=== PATIENT | female | born 2000 | race Caucasian/White ===

== ENCOUNTER 2020-09-30 01:57 | Emergency (ER) | payer BC, SELFPAY ==
--- OUTSIDE RECORDS SUMMARY | 2020-09-30 02:00 | XMS REPORT | Continuity of Care Document ---
:2000 Author Organization [facility] t Address [address] [place] [address] Care Team Providers Name Role Phone Pcp, Patient Does Not Have A Primary Care Physician +[id number] Nakia Ruiz MD Attending Clinician Ruperto Cullen MD Attending Clinician Payers Payer Name Policy Type Policy Effective Date Expiration Date Sour ce Number BCBS OF [id number] 2020 [place] [facility] [place] [facility] [place] OUT OF Branch [id number] [phone] [id number], [place] [address]MHM/POS Problems This patient has no known problems. Allergies, Adverse Reactions, Alerts Allergy Allergy Status Severity Reaction(s) Onset Inactive Treating Comm ents Source Name Type Date Date Clinician Amoxicil Propensi Active Anaphylaxis 2020-0 U nivers john ty to 4-23 ity of adverse 00:00: [place] reaction 00 Medical s Branch Sulfa Propensi Active Anaphylaxis 2020-0 Uni vers (Sulfona ty to 4-23 ity of mide adverse 00:00: [place] Antibiot reaction 00 Medica l ics) s Branch Social History Social Habit Start Date Stop Date Quantity Comments Source Exposure to Not sure University of SARS-CoV-2 [facility] (event) Branch Tobacco use and 2020-06-12 2020-06-12 Never used Universit y of exposure 00:00:00 00:00:00 [place] [facility] Alcohol intake 2020-06-12 2020-06-12 Current drinker Unive rsity of 00:00:00 00:00:00 of alcohol [facility] (finding) [place] Alcohol Comment 2020-05-30 2020-05-30 1 drink a night Univ ersity of 00:00:00 00:00:00 [facility] Sex Assigned At [birth year] Universit y of 00:00:00 00:00:00 [facility] Smoking Status Start Date Stop Date Source Never smoker [facility] Medications This patient has no known medications. Vital Signs Vital Name Observation Time Observation Value Comments Source Systolic blood 2020-06-12 19:42:00 135 mm[Hg] Univer sity of pressure [facility] Diastolic blood 2020-06-12 19:42:00 83 mm[Hg] Unive rsity of [facility] Heart rate 2020-06-12 19:42:00 107 /min [facility] Body temperature 2020-06-12 19:42:00 36.89 Zeina [facility] Respiratory rate 2020-06-12 19:42:00 18 /min [facility] Body height 2020-06-12 19:42:00 172.7 cm [facility] Body weight 2020-06-12 19:42:00 165.563 kg [facility] BMI 2020-06-12 19:42:00 55.50 kg/m2 [facility] Procedures This patient has no known procedures. Plan of Care Planned Activity Planned Date Details Comments Source Future Scheduled 2021-05-30 Well child visit [facility] Test 00:00:00 (procedure) [code = Medical Branch [id number]] Future Scheduled 2021-05-30 Well child visit [facility] Test 00:00:00 (procedure) [code = Medical Branch [id number]] Future Scheduled 2020-10-08 [facility] ([facility] Ended[facility] [code = Medic al Branch INFLUENZA VACCINE (Season Ended)] Future Scheduled 2020-10-08 INFLUENZA VACCINE Univer sity [facility] Test 00:00:00 (Season Ended) [code = Medic al Branch INFLUENZA VACCINE (Season Ended)] Future Scheduled 2018-11-08 DTaP,Tdap,and Td [facility] [place] Test 00:00:00 Vaccines (1 - Tdap) Medical Branch [code = DTaP,Tdap,and Td Vaccines (1 - Tdap)] Future Scheduled 2018-11-08 DTaP,Tdap,and Td [facility] [place] Test 00:00:00 Vaccines (1 - Tdap) Medical Branch [code = DTaP,Tdap,and Td Vaccines (1 - Tdap)] Future Scheduled 2017-11-08 Hepatitis C screening [facility] [place] Test 00:00:00 (procedure) [code = Medical Branch [id number]] Future Scheduled 2017-11-08 Hepatitis C screening [facility] [place] Test 00:00:00 (procedure) [code = Medical Branch [id number]] Future Scheduled 2015 Screening for [facility] [place] Test 00:00:00 Chlamydia trachomatis Medica l Branch (procedure) [code = [id number]] Future Scheduled 2015 SARS-CoV-2 (COVID-19) [facility] [place] Test 00:00:00 Vaccine (1) [code = Medical Branch SARS-CoV-2 (COVID-19) Vaccine (1)] Future Scheduled 2015 Screening for [facility] [place] Test 00:00:00 Chlamydia trachomatis Medica l Branch (procedure) [code = [id number]] Future Scheduled 2015 SARS-CoV-2 (COVID-19) [facility] [place] Test 00:00:00 Vaccine (1) [code = Medical Branch SARS-CoV-2 (COVID-19) Vaccine (1)] Future Scheduled 2011 Depression screening [facility] [place] Test 00:00:00 (procedure) [code = Medical Branch [id number]] Future Scheduled 2011 Depression screening [facility] [place] Test 00:00:00 (procedure) [code = Medical Branch [id number]] Future Scheduled 2010-11-08 HPV VACCINES (1 - [facility] [place] Test 00:00:00 2-dose series) [code = Medic al Branch HPV VACCINES (1 - 2-dose series)] Future Scheduled 2010-11-08 HPV VACCINES (1 - [facility] [place] Test 00:00:00 2-dose series) [code = Medic al Branch HPV VACCINES (1 - 2-dose series)] Future Scheduled 2009-11-08 MENINGOCOCCAL B Universi ty [facility] Test 00:00:00 VACCINES (1 of 2 - Medical B [facility] Risk Bexsero 2-dose series) [code = MENINGOCOCCAL B VACCINES (1 of 2 - Risk Bexsero 2-dose series)] Future Scheduled 2009-11-08 MENINGOCOCCAL B Univers[facility] Test 00:00:00 VACCINES (1 of 2 - Medical B [place] Risk Bexsero 2-dose series) [code = MENINGOCOCCAL B VACCINES (1 of 2 - Risk Bexsero 2-dose series)] Future Scheduled 2000-11-08 VARICELLA VACCINES (1 [facility] [place] Test 00:00:00 of 2 - 2-dose Medical Branch childhood series) [code = VARICELLA VACCINES (1 of 2 - 2-dose childhood series)] Future Scheduled 2000-11-08 VARICELLA VACCINES (1 [facility] [place] Test 00:00:00 of 2 - 2-dose Medical Branch childhood series) [code = VARICELLA VACCINES (1 of 2 - 2-dose childhood series)] Encounters Start End Encounter Admission Attending Care Care Encounter Source Date/Time Date/Time Type Type Clinicians Facility Department ID 2020-09-03 2020-09-03 Refill BRIA Ruiz [id number] 00:00:00 00:00:00 [facility] [id number] [place] [id number] Professio [phone] nal [address] 2020-07-17 2020-07-17 Office BRIA Ruiz [id number] 13:16:53 14:31:59 Visit [facility] [id number] [place] [id number] Professio [phone] nal [address] Results This patient has no known results.
[2020-09-30 02:51] LABS: Absolute Lymphocytes (CBC) 2.7 K/uL (0.7-4.9); Basophils % 0.5 % (0-1.3); Hematocrit 39.4 % (36.0-45.0); Lymphocytes % 17.2 % (15.3-44.8); MPV 7.7 fL (7.6-11.3); RBC Red Blood Cell Count 4.51 M/uL (3.86-4.86)
[2020-09-30] MEDS ORDERED: ONDANSETRON 4 MG (ODT) TAB ONE (02:58)
[2020-09-30 03:08] LABS: ALT/SGPT 37 U/L (12-78); Albumin 3.6 g/dL (3.4-5.0); Alkaline Phosphatase 74 U/L (45-117); BUN Blood Urea Nitrogen 15 mg/dL (7-18); Bicarbonate 23 mmol/L (21-32); Bilirubin Direct < 0.1 mg/dL (0-0.2); Bilirubin Total 0.4 mg/dL (0.2-1.0); Glucose Level 99 mg/dL (74-106); Lipase 74 U/L (73-393); Protein, Total 7.7 g/dL (6.4-8.2); Sodium Level 138 mmol/L (136-145)
[2020-09-30 03:12] LABS: AST/SGOT 19 U/L (15-37); Potassium 3.9 mmol/L (3.5-5.1)
--- NOTE | 2020-09-30 04:09 | ER ---
Nurse's Notes [facility] Name: Maira Vera Age: 19 yrs Sex: Female : 2000 Arrival Date: 09/30/2020 Time: 01:58 Bed 11 Private MD: Diagnosis: Other ovarian cysts Presentation: 09/30 02:24 Chief complaint: Patient states: thinks ovarian cyst ruptured, hx of cysts, had ovary em removed but is unsure which one, reports nausea, denies fever, vomiting or burning with urination. Coronavirus screen: Client denies travel out of the [place] in the last 14 days. Ebola Screen: Patient negative for fever greater than or equal to 101.5 degrees Fahrenheit, and additional compatible Ebola Virus Disease symptoms Patient denies exposure to infectious person. Patient denies travel to an Ebola-affected area in the 21 days before illness onset. No symptoms or risks identified at this time. Initial Sepsis Screen: Does the patient meet any 2 criteria? HR > 90 bpm. No. Patient's initial sepsis screen is negative. Does the patient have a suspected source of infection? No. Patient's initial sepsis screen is negative. Risk Assessment: Do you want to hurt yourself or someone else? Patient reports no desire to harm self or others. Onset of symptoms was September 30, 2020. 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 - Social history:: Smoking status: Patient denies any tobacco usage or history of. Screenin:24 Abuse screen: Denies threats or abuse. Nutritional screening: No deficits noted. em Tuberculosis screening: No symptoms or risk factors identified. Fall Risk None identified. Assessment: 02:35 General: Appears in no apparent distress. uncomfortable, obese, well developed, well em nourished, Behavior is calm, cooperative, appropriate for age. Pain: Complains of pain in pelvis Pain currently is 10 out of 10 on a pain scale. Neuro: Level of Consciousness is awake, alert, obeys commands, Oriented to person, place, time, situation. Cardiovascular: Capillary refill < 3 seconds Patient's skin is warm and dry. Respiratory: Airway is patent Respiratory effort is even, unlabored, Respiratory pattern is regular, symmetrical. GI: Abdomen is obese. Derm: Skin is intact, is healthy with good turgor, Skin is pink, warm \T\ dry. Musculoskeletal: Capillary refill < 3 seconds, Range of motion: intact in all extremities. Vital Signs: 02:24 Pulse 93; Resp 20; Temp 98.7; Pulse Ox 100% on R/A; Weight 158.76 kg; Height 5 ft. 8 em in. (172.72 cm); Pain 10/10; 02:35 BP 135 / 90; em 02:24 Body Mass Index 53.22 (158.76 kg, 172.72 cm) em ED Course: 01:58 Patient arrived in ED. wm 02:26 Triage completed. em 02:26 Arm band placed on. em 03:17 Transvaginal Study Probe In Process Unspecified. EDMS 03:34 Pedro Luis Spencer, RN is Primary Nurse. em 03:47 Horace Viveros MD is Attending Physician. tw4 04:15 No provider procedures requiring assistance completed. Patient did not have IV access em during this emergency room visit. Administered Medications: 03:02 Drug: Zofran (Ondansetron) 4 mg Route: PO; em 03:52 Follow up: Response: No adverse reaction; Marked relief of symptoms; Nausea is decreasedem 03:52 Drug: HYDROcodone-acetaminophen 5 mg-325 mg 1 tabs Route: PO; em 04:16 Follow up: Response: No adverse reaction; Marked relief of symptoms; Pain is decreased em Outcome: 04:09 Discharge ordered by . tw4 04:15 Discharged to home ambulatory. em 04:15 Condition: good 04:15 Discharge instructions given to patient, Instructed on discharge instructions, follow up and referral plans. medication usage, Demonstrated understanding of instructions, follow-up care, medications, Prescriptions given X 1. 04:21 Patient left the ED. em Signatures: Dispatcher [employer] REMIGIOIN Pedro Luis Spencer RN RN em Horace Viveros MD MD tw4 Saadia Dickson wm Corrections: (The following items were deleted from the chart) 02:27 02:26 PMHx: None; em em
--- NOTE | 2020-09-30 04:09 | EDPHYS ---
Physician Documentation [facility] Name: Maira Vera Age: 19 yrs Sex: Female : 2000 Arrival Date: 09/30/2020 Time: 01:58 Bed 11 Private MD: ED Physician Horace Viveros HPI: 09/30 05:53 This 19 yrs old Female presents to ER via Wheelchair with complaints of tw4 Abdominal Pain, THINKS A CYST RUPTURED. 05:53 The patient presents with pelvic pain, that is located in/on the right lower quadrant tw4 and left lower quadrant. Onset: The symptoms/episode began/occurred today. Modifying factors: The symptoms are alleviated by nothing, the symptoms are aggravated by nothing. Associated signs and symptoms: The patient has no apparent associated signs or symptoms. Severity of symptoms: At their worst the symptoms were moderate, in the emergency department the symptoms are unchanged. The patient has not experienced similar symptoms in the past. 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 - Social history:: Smoking status: Patient denies any tobacco usage or history of. ROS: 05:53 Positive for pelvic pain, Negative for vaginal itching, menstrual abnormality, tw4 missed period. 05:53 Constitutional: Negative for fever, chills, and weight loss, Eyes: Negative for injury, pain, redness, and discharge, Cardiovascular: Negative for chest pain, palpitations, and edema, Respiratory: Negative for shortness of breath, cough, wheezing, and pleuritic chest pain. 05:53 Back: Negative for injury and pain, MS/Extremity: Negative for injury and deformity, Skin: Negative for injury, rash, and discoloration, Neuro: Negative for headache, weakness, numbness, tingling, and seizure. 05:53 Abdomen/GI: Positive for abdominal pain, Negative for nausea and vomiting, nausea, vomiting, and diarrhea, nausea, vomiting, diarrhea, constipation, abdominal cramps, abdominal distension, anorexia, black/tarry stool, rectal pain, rectal bleeding. Exam: 05:53 Constitutional: This is a well developed, well nourished patient who is awake, alert, tw4 and in no acute distress. Head/Face: Normocephalic, atraumatic. Chest/axilla: Normal chest wall appearance and motion. Nontender with no deformity. No lesions are appreciated. Cardiovascular: Regular rate and rhythm with a normal S1 and S2. No gallops, murmurs, or rubs. Normal PMI, no JVD. No pulse deficits. Respiratory: Lungs have equal breath sounds bilaterally, clear to auscultation and percussion. No rales, rhonchi or wheezes noted. No increased work of breathing, no retractions or nasal flaring. 05:53 Back: No spinal tenderness. No costovertebral tenderness. Full range of motion. Skin: Warm, dry with normal turgor. Normal color with no rashes, no lesions, and no evidence of cellulitis. 05:53 Abdomen/GI: Inspection: abdomen appears normal, Bowel sounds: normal, Palpation: moderate abdominal tenderness, in the right lower quadrant and left lower quadrant. Vital Signs: 02:24 Pulse 93; Resp 20; Temp 98.7; Pulse Ox 100% on R/A; Weight 158.76 kg; Height 5 ft. 8 em in. (172.72 cm); Pain 10/10; 02:35 BP 135 / 90; em 02:24 Body Mass Index 53.22 (158.76 kg, 172.72 cm) em MDM: 03:47 Patient medically screened. tw4 05:53 Differential diagnosis: ectopic , endometriosis, kidney stone, menorrhea, tw4 Neoplasm ovarian cyst, uterine fibroids, urinary tract infection. Data reviewed: vital signs, nurses notes. Data interpreted: Pulse oximetry: Interpretation: normal. Counseling: I had a detailed discussion with the patient and/or guardian regarding: the historical points, exam findings, and any diagnostic results supporting the discharge/admit diagnosis. Special discussion: I discussed with the patient/guardian in detail that at this point there is no indication for admission to the hospital. It is understood, however, that if the symptoms persist or worsen the patient needs to return immediately for re-evaluation. 09/30 02:07 Order name: Basic Metabolic Panel tw4 09/30 02:07 Order name: CBC with Diff tw4 09/30 02:07 Order name: Hepatic Function tw4 09/30 02:07 Order name: Lipase; Complete Time: 03:48 tw4 09/30 02:07 Order name: Basic Metabolic Panel; Complete Time: 03:48 EDMS 09/30 03:49 Interpretation: Normal except: CL 109. tw4 09/30 02:07 Order name: CBC with Automated Diff; Complete Time: 03:48 EDMS 09/30 03:49 Interpretation: Normal except: WBC 15.70; NEUT A 11.4. tw4 09/30 02:07 Order name: IV Saline Lock; Complete Time: 03:12 tw4 09/30 02:07 Order name: Labs collected and sent; Complete Time: 03:12 tw4 09/30 02:07 Order name: Liver (Hepatic) Function; Complete Time: 03:48 EDMS 09/30 02:54 Order name: Transvaginal Study Probe EDMS Administered Medications: 03:02 Drug: Zofran (Ondansetron) 4 mg Route: PO; em 03:52 Follow up: Response: No adverse reaction; Marked relief of symptoms; Nausea is decreasedem 03:52 Drug: HYDROcodone-acetaminophen 5 mg-325 mg 1 tabs Route: PO; em 04:16 Follow up: Response: No adverse reaction; Marked relief of symptoms; Pain is decreased em Disposition Summary: 09/30/20 04:09 Discharge Ordered Location: Home tw4 Problem: new tw4 Symptoms: have improved tw4 Condition: Stable tw4 Diagnosis - Other ovarian cysts tw4 Followup: tw4 - With: Private Physician - When: Upon discharge from the Emergency Department - Reason: Recheck today's complaints, Continuance of care, Re-evaluation by your physician Discharge Instructions: - Discharge Summary Sheet tw4 - Ovarian Cyst tw4 Forms: - Medication Reconciliation Form tw4 - Thank You Letter tw4 - Work release form em - Antibiotic Education tw4 - Prescription Opioid Use tw4 Prescriptions: - Ibuprofen 800 mg Oral Tablet - take 1 tablet by ORAL route every 8 hours As needed take with food; 30 tablet; tw4 Refills: 0, Product Selection Permitted Signatures: Dispatcher [employer] Pedro Luis Tran RN RN em Wadley, Terrence, MD MD tw4 Corrections: (The following items were deleted from the chart) 02:27 02:26 PMHx: None; em em 02:54 02:31 Pelvis Complete+US.RAD.BRZ ordered. EDMS EDMS
[2020-09-30] MEDS ORDERED: HYDROCODONE/APAP 5/325 MG TAB ONE (04:13)
[2020-09-30 04:30] VITALS: TEMP 98.7; O2SAT 100
[2020-09-30 04:31] VITALS: BP 135/90
--- NOTE | 2020-09-30 08:16 | RAD REPORT ---
EXAM DESCRIPTION: US - Transvaginal Study Probe - 09/30/2020 3:17 am CLINICAL HISTORY: Pelvic pain COMPARISON: none FINDINGS: The uterus measures 8 x 3 x 5 centimeters. A fibroid is not seen. Endometrial stripe measu res 6 millimeters 2.5 centimeter right ovarian cyst blood flow is present within the right ovary 4.3 x 2.5 x 2.2 centimeter complex cystic structure left adnexa. Right adnexal unremarkable Small to moderate free fluid within the pelvis IMPRESSION: 2.5 centimeter right ovarian cyst. 4.3 centimeter complex cystic structure left at adnexa. This may represent left ovary containing mult iple cysts or an ovarian cystic neoplasm. Small to moderate amount of free fluid It is recommended that the patient have a follow up ultrasound in approximately 6 weeks for re-evalua tion
== END 2020-09-30 04:21 | disposition home or self-care (01) ==
LOC: ER 01:57
DX: N83.299 Other ovarian cyst, unspecified side (principal); Z88.1 Allergy status to other antibiotic agents; Z88.2 Allergy status to sulfonamides
CPT/HCPCS: 36415; 76830; 80048; 80076; 83690; 85025; 99283